=== PATIENT | male | born 1970 | race Caucasian/White ===

== ENCOUNTER 2017-05-08 23:20 | Emergency (ER) | payer OTHER ==
[2017-05-08] MEDS ORDERED: Acetaminophen/HYDROcodone 325-10 MG Tab PO ONE (23:21)
[2017-05-08 23:27] VITALS: BP 150/99
--- NOTE | 2017-05-08 23:42 | EDM.PDOC ---
ED HPI GENERAL MEDICAL PROBLEM - General Chief Complaint: Abdominal Pain Stated Complaint: ABD PAIN Time Seen by Provider: 05/08/17 23:40 Source of Information: Reports: Patient History Limitations: Reports: No Limitations - History of Present Illness INITIAL COMMENTS - FREE TEXT/NARRATIVE: c/o 1 week h/o RUQ pain going into left chest & diffuse abdomen (different parts ). He has had several ER visits (in [place] and in [facility]) with negative cardiac w/u been told could be GB but nobody did US to r/o. he reports intermittent nausea along with heart burn. he has not had any recent travels. he reports intermittent non-bloody diarrhea for the past couple of days. tonight , the pain was bad enough that he came in to the ER for evaluation. he has tried OTC ibuprofen with minimal relief. denies vomiting, fever, recent dietary changes, being on prescription medications. 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) Right Upper Abdomen Pain Score (Numeric/FACES): 8 - Related Data Allergies Allergy/AdvReac Type Severity Reaction Status Date / Time No Known Drug Allergies Allergy Other Verified 05/08/17 23:27 Home Meds: Home Meds Aspirin 325 mg PO DAILY PRN 05/08/17 [History] Ibuprofen [Advil] 600 mg PO TID PRN 05/08/17 [History] Past Medical History - Past Health History Medical/Surgical History: Denies Medical/Surgical History HEENT History: Reports: Other (See Below) Respiratory History: Reports: Sleep Apnea Musculoskeletal History: Reports: Other (See Below) Other Musculoskeletal History: chronic neck pain - Past Surgical History HEENT Surgical History: Reports: Eye Surgery, Tonsillectomy Other HEENT Surgeries/Procedures: eye surgery for overactive tear ducts Social & Family History - Family History Family Medical History: Noncontributory - Tobacco Use Smoking Status *Q: Never Smoker Years of Tobacco use: 2 Used Tobacco, but Quit: No Month Tobacco Last Used: August 1987 Second Hand Smoke Exposure: No - Caffeine Use Caffeine Use: Reports: None - Alcohol Use Days Per Week of Alcohol Use: 0 Number of Drinks Per Day: 1 Total Drinks Per Week: 0 - Recreational Drug Use Recreational Drug Use: No ED ROS GENERAL - Review of Systems Review Of Systems: See Below HEENT: Reports: No Symptoms Respiratory: Reports: No Symptoms Cardiovascular: Reports: No Symptoms Endocrine: Reports: No Symptoms GI/Abdominal: Reports: Abdominal Pain, Diarrhea, Nausea : Reports: No Symptoms Musculoskeletal: Reports: No Symptoms Skin: Reports: No Symptoms Neurological: Reports: No Symptoms Hematologic/Lymphatic: Reports: No Symptoms ED EXAM, GI/ABD - Physical Exam Exam: See Below Exam Limited By: No Limitations General Appearance: Alert, WD/WN, Mild Distress, Other (discomfort) Head: Atraumatic Neck: Normal Inspection, Supple Respiratory/Chest: No Respiratory Distress, Lungs Clear, Normal Breath Sounds, No Accessory Muscle Use Cardiovascular: Regular Rate, Rhythm, No Edema GI/Abdominal Exam: Normal Bowel Sounds, Soft, No Organomegaly, No Distention, Tender (mild tenderness around RUQ and mid-abdomen; negative roberts's sign) Extremities: Normal Inspection, Normal Range of Motion Neurological: Alert, Oriented Skin Exam: Warm, Dry, Intact, Normal Color Course - Vital Signs Last Recorded V/S: Last Vital Signs Temp 36.1 C 05/08/17 23:23 Pulse 89 05/08/17 23:23 Resp 18 05/08/17 23:23 BP 150/99 H 05/08/17 23:23 Pulse Ox 95 05/08/17 23:23 - Orders/Labs/Meds Orders: Active Orders 24 hr Category Date Time Status [facility] IGM [REF] Stat Lab 05/09/17 00:41 Ordered Labs: Laboratory Tests 05/08/17 05/08/17 05/08/17 Range/Units 23:40 23:40 23:40 WBC 10.2 H (5.0-10.0) 10^3/uL RBC 5.65 (4.6-6.2) 10^6/uL Hgb 15.9 (14.0-18.0) g/dL Hct 47.1 (40.0-54.0) % MCV 83.4 (80-100) fL MCH 28.1 (27.0-34.0) pg MCHC 33.8 (33.0-35.0) g/dL Plt Count 163 (150-450) 10^3/uL Neut % (Auto) 63.3 (42.2-75.2) % Lymph % (Auto) 25.6 (20.5-50.1) % [place] % (Auto) 9.5 H (2-8) % Eos % (Auto) 1.2 (1.0-3.0) % Baso % (Auto) 0.4 (0.0-1.0) % D-Dimer, Quantitative < 100 (0-400) ng/mL Sodium 141 (135-145) mmol/L Potassium 4.1 (3.6-5.0) mmol/L Chloride 105 (101-111) mmol/L Carbon Dioxide 26.0 (21.0-31.0) mmol/L Anion Gap 14.1 BUN 20 H (7-18) mg/dL Creatinine 0.9 (0.6-1.3) mg/dL Est Cr Clr Drug Dosing 134.48 mL/min Estimated GFR (MDRD) > 60 BUN/Creatinine Ratio 22.22 Glucose 85 (74-105) mg/dL Calcium 9.4 (8.4-10.2) mg/dl Total Bilirubin 0.9 (0.2-1.0) mg/dL AST 21 (10-42) IU/L ALT 32 (10-60) IU/L Alkaline Phosphatase 79 (42-121) IU/L Troponin I < 0.02 (0.00-0.02) ng/ml Total Protein 7.3 (6.7-8.2) g/dl Albumin 4.0 (3.2-5.5) g/dl Globulin 3.3 Albumin/Globulin Ratio 1.21 Amylase 56 (28-100) U/L Lipase 43 (22-51) U/L Meds: Medications Discontinued Medications Generic Name Dose Route Start Last Admin Trade Name Freq PRN Reason Stop Dose Admin Iopamidol 100 ml 05/08/17 23:44 05/08/17 23:58 Isovue-300 (61%) IVPUSH 05/08/17 23:45 100 ml ONETIME ONE Administration Ketorolac Tromethamine 30 mg 05/09/17 00:15 05/09/17 00:19 Toradol IVPUSH 05/09/17 00:16 30 mg ONETIME ONE Administration Morphine Sulfate 4 mg 05/09/17 00:40 Morphine IVPUSH 05/09/17 00:41 ONETIME ONE Ondansetron HCl 4 mg 05/09/17 00:40 Zofran IV 05/09/17 00:41 ONETIME ONE - Re-Assessments/Exams Free Text/Narrative Re-Assessment/Exam: 05/09/17 01:06 results discussed with pt. Departure - Departure Time of Disposition: 01:06 Disposition: Home, Self-Care 01 Condition: Good Clinical Impression: Abdominal pain Qualifiers: Abdominal location: right upper quadrant Qualified Code(s): R10.11 - Right upper quadrant pain - Discharge Information Instructions: Abdominal Pain, Adult, [id number] Forms: ED Department Discharge Additional Instructions: 1) call clinic tomorrow to see Dr Jaye Morgan for GALL BLADDER ULTRASOUND. rx given; bentyl 10mg bid prn cramps x 20 vicodin 5/325mg bid prn pain x 12 - My Orders Last 24 Hours: My Active Orders 05/09/17 00:41 [facility] I[facility] [REF] Stat - Assessment/Plan Last 24 Hours: My Active Orders 05/09/17 00:41 [facility] IGM [REF] Stat
[2017-05-08] MEDS ORDERED: Iopamidol 612 MG/ML 100 ML Bottle IVPUSH ONE (23:44)
[2017-05-09 00:08] LABS: CHLORIDE,CL 105 mmol/L (101-111); SODIUM,NA 141 mmol/L (135-145)
[2017-05-09] MEDS ORDERED: Ketorolac 30 MG/ML SDV IVPUSH ONE (00:15)
[2017-05-09] MEDS ORDERED: Morphine 4 MG/ML Syringe IVPUSH ONE (00:40)
[2017-05-09] MEDS ORDERED: Ondansetron 4 MG/2 ML SDV IV ONE (00:40)
[2017-05-09] MEDS ORDERED: Acetaminophen/HYDROcodone 325-10 MG Tab ONE (01:17)
[2017-05-09] MEDS ORDERED: Ondansetron 4 MG Tab.DIS PO ONE (01:21)
[2017-05-09] MEDS ORDERED: Ondansetron 4 MG Tab.DIS ONE (01:21)
== END 2017-05-09 01:34 | disposition home or self-care (01) ==
LOC: DL.ED 23:20
DX: R10.11 Right upper quadrant pain (principal); Z79.82 Long term (current) use of aspirin; Z98.890 Other specified postprocedural states
CPT/HCPCS: 36415; 74177; 80053; 82150; 83690; 84484; 85025; 85379; 86788; 96374; 99284; A9270; J1885; Q9967